=== PATIENT | male | born 1975 | race Caucasian/White ===

== ENCOUNTER 2019-04-15 17:22 | Inpatient (IN) | payer OTHER ==
[~2019-04-15] VITALS: Ht 180.3 cm; Wt 175.5 kg
[2019-04-15 17:26] VITALS: BP 173/124
[2019-04-15 18:12] LABS: ABSOLUTE NEUTROPHILS 4.9 thou/uL (1.4-8.2); BASOPHILS 0.8 % (0.0-2.0); EOSINOPHILS 3.3 % (0.0-3.0); HEMATOCRIT 42.8 % (42.0-52.0); HEMOGLOBIN 13.9 gm/dL (14.0-18.0); LYMPHOCYTES 23.3 % (24.0-44.0); MCH 30.3 pg (26.0-34.0); MCHC 32.4 g/dL (28.0-37.0); MCV 93.7 fL (80.0-100.0); MONOCYTES 8.5 % (1.0-8.0); PLATELET COUNT 169 thou/uL (150-400); POLYS 64.1 % (36.0-66.0); RBC 4.57 mil/uL (4.50-6.00); RDW 15.2 % (10.5-14.5); WBC 7.7 thou/uL (4.0-11.0)
[2019-04-15 18:21] LABS: CALCIUM 8.9 mg/dL (8.5-10.1); CREATININE 1.6 mg/dL (0.7-1.3)
[2019-04-15 18:24] LABS: INR 1.1; PROTIME 10.8 Seconds (9.3-11.4)
[2019-04-15 18:30] LABS: ALBUMIN 3.7 g/dL (3.4-5.0); TOTAL BILIRUBIN 0.4 mg/dL (<0.1-1.0); TOTAL PROTEIN 7.3 g/dL (6.4-8.2); TROPONIN-I 0.06 ng/mL (<0.06)
[2019-04-15 20:31] VITALS: BP 123/83
--- NOTE | 2019-04-15 20:32 | NUR ---
I HAND DELIVERED EKG DONE IN ER TO MARITZA HANSEN IN CCU. CARDIZEM, HEPARIN DRIP WERE INFUSING AT TIME OF TRANSFER.
[2019-04-15 21:02] VITALS: BP 140/96
[2019-04-15] MEDS ORDERED: MULTI VITAMIN1 EACH PO ×2 (23:00)
[2019-04-15] MEDS ORDERED: TYLENOL325 M1 PO ×2 (23:02)
[2019-04-15] MEDS ORDERED: TUMS200 MG PO ×2 (23:04)
[2019-04-15 23:48] VITALS: BP 146/112
--- NOTE | 2019-04-16 00:18 | NUR ---
PATIENT ARRIVED ON UNIT AT 2030 FROM ED WITH HEPARIN AND DILTAZEM RUNNING. SETTLED INTO ROOM, PLACED ON TELEMETRY. ADMITTED INTO COMPUTER SYSTEM. HOME MEDS REVIEWED. INHALER SENT TO PHARMACY TO HOLD WHILE PATIENT IS HERE. PATIENT MED BAG RECIEPT IN CHART.
[2019-04-16 01:32] LABS: CALCIUM 8.5 mg/dL (8.5-10.1); CREATININE 1.5 mg/dL (0.7-1.3); POTASSIUM 3.7 mmol/L (3.5-5.1)
[2019-04-16 01:38] LABS: CHOLESTEROL 107 mg/dL (<200); HDL CHOLESTEROL 34 mg/dL (>40); LDL CHOLESTEROL 64 mg/dL (<100); TC:HDL 3.1 Ratio (Not establshd); TRIGLYCERIDE 47 mg/dL (<150); VLDL 9 mg/dL (<40)
[2019-04-16 01:39] LABS: SERUM ASSESSMENT Clear
[2019-04-16 04:16] VITALS: BP 137/87
[2019-04-16 07:54] VITALS: BP 135/99
--- NOTE | 2019-04-16 07:57 | EKG ---
[address] [place] [address] ELECTROCARDIOGRAM REPORT Name: BINTA BINGHAM Room #: 207-P ADM IN M.R.#: [id number] Admission: 04/15/19 Attend Phys: Harrison Menon MD Discharge: Date of : 75 Report #: [id number] THIS REPORT FOR: //name// [facility] ED Test Date: 2019-04-15 Test Time: 17:34:49 Pat Name: BINTA BINGHAM Department: Room: 207 Gender: M Instructor Programmable Controllers: [place] : 1975 Requested By: Nuno Regan Order Number: [id number] MD: Dhruv Lambert Measurements Intervals Mcdaniel Rate: 127 P: RI: QRS: 50 QRSD: 91 T: 85 QT: 310 QTc: 451 Interpretive Statements Atrial fibrillation Poor R wave progression Compared to ECG 08/16/2002 07:24:53 Poor R wave progression is now present Sinus rhythm no longer present Electronically Signed On 04-16-2019 7:56:30 [employer] CLAIM EXAMINER by Dhruv Lambert [email or web address] <ELECTRONICALLY SIGNED> By: Dhruv Lambert MD, [facility] 04/16/19 0756 [id number] Dhruv Lambert MD, [facility] /EPI
[2019-04-16 12:39] VITALS: BP 139/94
--- NOTE | 2019-04-16 18:31 | NUR ---
ASSUMED CARE AT SHIFT CHANGE, ALERT AND ORIENTED X4. AFIB ON THE MONITOR, AND CARDIZEM GTT THIS AM. CARDIZEM GTT DISCONTINUED AND PO CARDIZEM GIVEN THE AM. TACHY WITH ACTIVITIES, IV LASIX GIVEN SCHEDULED AND PATIENT AND ADQUATE URINE OUTPUT. PART 1 NUCMED STRESS TEST COMPLETED, PART 2 WILL BE DONE IN THE AM. OTHER VSS AND WILL CONTINUE WITH POC.
[2019-04-16 19:46] VITALS: BP 141/99
[2019-04-17] VITALS (11 sets, daily range): BP systolic 105–133; BP diastolic 65–105
--- NOTE | 2019-04-17 04:28 | NUR ---
ASSESSMENT DOCUMENTED.PT BEEN RESTING IN NO ACUTE DISTRESS.A/OX4,VSS.ON RA W/O RESP DISTRESS.REMAINS AFIB ON MONITOR W/CONTROLLED HR BUT SOMETIMES WITH COUGHING AND ACTIVITIES HR GOES TO 120S,150S.ON HEPARIN DRIP PER CARDIAC PROTOCOL AT 10UNITS/KG/HR.URINATING PER URINAL,LARGE AMOUNT OF URINE.ON LASIX IVP.POC IS TO HAVE SECOND PART OF STRESS TEST TODAY AND MONITOR INR. WILL CONT TO MONITOR PER POC.
[2019-04-17 08:34] LABS: CALCIUM 9.2 mg/dL (8.5-10.1); CREATININE 1.5 mg/dL (0.7-1.3); POTASSIUM 3.7 mmol/L (3.5-5.1)
[2019-04-17 09:02] LABS: APTT 66.6 Seconds (24.5-32.8); INR 1.1; PROTIME 10.6 Seconds (9.3-11.4)
--- NOTE | 2019-04-17 14:00 | NUR ---
Assess due to high BMI 55.4=extreme class III obesity. Admit with SOA, CHF. Requires lasix for diuresis. Appetite adequate. See RD education note for further information. Low nutrition risk
--- NOTE | 2019-04-17 16:04 | CATHLAB ---
[facility] [address] [email or web address] [address] INVASIVE PROCEDURE REPORT Name: BINTA BINGHAM Room #: 207-P ADM IN .R.#: [id number] Admission: 04/15/19 Attend Phys: Harrison Menon MD Discharge: Date of : 75 Report #: [id number] THIS REPORT FOR: //name// APPROVED REPORT Study performed: 04/17/2019 14:22:46 Patient Details Patient Status: In-Patient Room #: The patient is a 44 year-old male Event Personnel Jayro Bazan Stunt Performer, Meka Donovan RN RN, Zoe Manuel RN RN, Kani Rutherford Sandifer, David Monitor Procedures Performed Left Heart Cath w/or w/o Coronaries [id number] [facility] Indication CHF Current Status: , Atrial fibrillation, Dyspnea, CardiomyopathyPositive stress test Risk Factors Obesity, Physical Activity, Hypertension Procedure Narrative The Right Wrist^ was infiltrated with 1% Lidocaine subcutaneous anesthesia. A TRANSRADIAL SLENDER 6F GLIDESHEATH KIT #[id number] sheath was inserted into the Right Radial Artery^. Coronary angiography was performed using coronary diagnostic catheters. The right coronary system was accessed and visualized with a 5FR JR 4 #[id number] catheter. The left coronary system was accessed and visualized with a 5FR JL 3.5 #[id number] catheter. The left ventricle was accessed and visualized with a 5FR JR 4 #[id number] catheter. Left ventricular/Aortic Valve gradient assessed via catheter pullback. Closure device was deployed with a Fr VASC BAND XL 29CM #[id number]. The patient tolerated the procedure well and there were no complications associated with the procedure. Intraoperative Conscious Sedation Sedation start time: 15.04 Case end Time: 15.33 Fentanyl 50 mcg Versed 1 mg [facility] [place] [address] INVASIVE PROCEDURE REPORT Name: BINTA BINGHAM SARINA Room #: 207-P [facility] IN ..#: [id number] Admission: 04/15/19 Attend Phys: Harrison Menon MD Discharge: Date of : 75 Report #: [id number] Fluoro Time: 3.80 minutes Dose: DAP 9271.00 cGycm2 1512 mGy Contrast Type and Amount: Visipaque 50 ml Coronary Angiography The patient's coronary anatomy is right dominant. Diagnostic Cath Left Main The left main artery is a large-caliber vessel, patent with no flow-limiting lesions. LAD The LAD is a moderate to large-caliber vessel, traversing the anterior wall and terminating at the apex. There is a mild stenosis in the proximal segment, less than 10%. Diagonal 1 This is a patent vessel, with no flow-limiting lesions. Circumflex Supplies one OM vessel. OM1 This is a patent vessel, with no flow-limiting lesions. Right Coronary This is a moderate to large caliber vessel, dominant. There is a mild stenosis in the proximal segment, less than 10%. R PDA This is a moderate size caliber vessel, patent with no flow-limiting lesions. RPLV This is a moderate size caliber vessel, patent with no flow-limiting lesions. Left Ventriculography Left Ventriculography was not performed. Ejection Fraction was 40% based off patient's Nuclear Cardiac Stress Test. An LVEDP was measured and there is no gradient across the outflow tract. Hemodynamics The aortic pressure is 115/88 mmHg with a mean of 101 mmHg. The left ventricular pressure is 119/18 mmHg with a mean of mmHg. The left ventricular end diastolic pressure is 29 mmHg. There was no gradient across the aortic valve upon pullback. Pullback from the left ventricle to the aorta revealed no gradient across the aortic valve. Conclusion 1. Nonischemic cardiomyopathy. 2. Mild, nonobstructive disease. [facility] [address] [place] [address] INVASIVE PROCEDURE REPORT Name: BINTA BINGHAM Room #: 207-P [facility] IN M.R.#: [id number] Admission: 04/15/19 Attend Phys: Harrison Menon MD Discharge: Date of : 75 Report #: [id number] 3. Recommend guideline directed medical therapy and aggressive risk factor management. <ELECTRONICALLY SIGNED> By: Jayro Bazan MD 01/1602 02 02 Jayro Bazan MD /KING
--- NOTE | 2019-04-17 17:01 | NUR ---
Met with patient he admits with chest pain. he works at [employer] and been with [employer] for 15 years. 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 He does not have a licease so walks to work or trys to catch ride. He is independent with mobility and lives alone in [facility]. He has supportive family. [employer] to see patient he may not qualify for 12 month disability. Joy application to be given to patient or mailed. Gave patient resources for safety net clinic and services. patient with no PCP. He missed window to sign up for benefits and unable to s/o for benefits until Jan 2020.
--- NOTE | 2019-04-17 17:40 | NUR ---
ASSUMED CARE AT SHIFT CHANGE, ALERT AND ORIENTED X4 VSS AND AFEBRILE. AFIB ON THE MONITOR. ASSESMENT DOCUMENTED. PATIENT CATHED TODAY, RT RADIAL ACCESSED, AND POST CARDIAC CATH ASSESSMENT DONE. DENIES ANY DISCOMFORT AND WILL CONTINUE WITH POC.
[2019-04-18 03:31] VITALS: BP 91/61
--- NOTE | 2019-04-18 05:27 | NUR ---
ASSUMED CARE OF PT AT 1900HRS. PT IS AOX4 AND UP AD KATHERIN. PT USES CALL LIGHT NEEDED. NO BLEEDING NOTED FROM CATH SITE. LASIX CONTINUED. PT IS ON AFIB RHYTHM. PT WAS NOTED TO BECOME BRADYCARDIC A FEW TIMES WHILE RESTING. HEART RATE WAS IN THE 30S FOR A FEW SECONDS AT A TIME BUT PT WAS ASYMPTOMATIC. PT WAS ABLE TO GET COMFORTABLE AND SLEEP PART OF THE SHIFT. VSS AND NO S/S OF ACUTE DISTRESS. WILL CONTINUE TO MONITOR.
[2019-04-18 05:31] LABS: HEMATOCRIT 40.9 % (42.0-52.0); MCH 29.6 pg (26.0-34.0); MCHC 31.8 g/dL (28.0-37.0); MCV 93.3 fL (80.0-100.0); RBC 4.39 mil/uL (4.50-6.00); RDW 14.9 % (10.5-14.5); WBC 6.3 thou/uL (4.0-11.0)
[2019-04-18 05:32] LABS: PROTIME 10.7 Seconds (9.3-11.4)
[2019-04-18 05:51] LABS: CALCIUM 8.7 mg/dL (8.5-10.1); CREATININE 1.5 mg/dL (0.7-1.3); POTASSIUM 3.8 mmol/L (3.5-5.1)
[2019-04-18 07:55] VITALS: BP 99/73
--- NOTE | 2019-04-18 09:44 | 2DMMODE ---
[facility] [address] [place] [address] 2 D/M-MODE ECHOCARDIOGRAM Name: BINTA BINGHAM Room #: 207-P ADM IN M.R.#: [id number] Admission: 04/15/19 Attend Phys: Harrison Menon MD Discharge: Date of : 75 Report #: [id number] THIS REPORT FOR: //name// APPROVED REPORT Study performed: 04/18/2019 08:57:57 EXAM: Comprehensive 2D, Doppler, and color-flow Echocardiogram Patient Location: Echo lab Room #: 207 Status: routine BSA: 2.83 HR: 78 bpm BP: 91/61 mmHg Rhythm: Atrial Fibrillation Other Information Study Quality: Fair Technically limited study due to super morbid obese. Indications Short of breath, Afib, edema, CHF. Status post angiogram/mild CAD no intervention. Echo Enhancing Agent Indication: Endocardial border delineation Agent(s) / Amount(s) Used: Optison 4 cc 2D Dimensions RVDd: 47.21 mm IVSd: 12.72 (7-11mm) LVOT Diam: 24.08 (18-24mm) LVDd: 60.62 mm PWd: 13.10 (7-11mm) LVDs: 41.87 (25-40mm) Aortic Root: 36.38 mm Volumes Left Atrial Volume (Systole) Single Plane 4CH: 198.62 mL Single Plane 2CH: 183.55 mL LA ESV Index: 70.00 mL/m2 Aortic Valve AoV Peak Varinder.: 1.47 m/s AO Peak Gr.: 8.63 mmHg LVOT Max P.66 mmHg [facility] [address] [place] [address] 2 D/M-MODE ECHOCARDIOGRAM Name: BINTA BINGHAM Room #: 207-P ADM IN M.R.#: [id number] Admission: 04/15/19 Attend Phys: Harrison Menon MD Discharge: Date of : 75 Report #: [id number] LVOT Max V: 0.96 m/s STELLA Vmax: 2.96 cm2 Mitral Valve MV Decel. Time: 156.54 ms MV E Max Varinder.: 1.42 m/s Tricuspid Valve TR Peak Varinder.: 2.63 m/s RAP Estimate: 15.00 mmHg TR Peak Gr.: 28.00 mmHg PA Pressure: 43.00 mmHg Left Ventricle Left ventricle is dilated. Mild concentric left ventricular hypertrophy. Left ventricular systolic function is moderately decreased. LVEF is 40%. This study is not technically sufficient to allow evaluation of the LV diastolic function due to atrial fibrillation. Right Ventricle Right ventricle is mildly dilated. Difficult to assess function. Atria Left atrium is severely dilated. Right atrium is mildly dilated. Aortic Valve The aortic valve is normal in structure. Trace aortic regurgitation. There is no aortic valvular stenosis. Mitral Valve The mitral valve is normal in structure. Mild to moderate mitral regurgitation. Tricuspid Valve The tricuspid valve is normal in structure. Moderate tricuspid regurgitation. Estimated PAP is 40mmHg. Pulmonic Valve Pulmonic valve is not well visualized. Great Vessels The aortic root is normal in size. Ascending aorta is not well visualized. IVC is dilated and collapses <50% with inspiration. [facility] [address] [place] [address] 2 D/M-MODE ECHOCARDIOGRAM Name: BINTA BINGHAM Room #: 207-P [facility] IN ..#: [id number] Admission: 04/15/19 Attend Phys: Harrison Menon MD Discharge: Date of : 75 Report #: [id number] Pericardium There is no pericardial effusion. <Conclusion> Left ventricle is dilated. Mild concentric left ventricular hypertrophy. Left ventricular systolic function is moderately decreased. LVEF is 40%. Right ventricle is mildly dilated. Difficult to assess function. Left atrium is severely dilated. The aortic valve is normal in structure. Mild to moderate mitral regurgitation. Moderate tricuspid regurgitation. Estimated PAP is 40mmHg. <ELECTRONICALLY SIGNED> By: Jayro Bazan MD 04/18/19 0943 Jayro Bazan MD /INF
[2019-04-18 11:49] VITALS: BP 116/94
[2019-04-18 16:33] VITALS: BP 104/81
--- NOTE | 2019-04-18 17:03 | NUR ---
inquired into pricing for lovenox on outpatient basis. For approx 28 syringes approx 7 day supply $575.84 patient needing 4 100mg syringes for daily use of 180mg BID. Patient with no health insurance, no PCP and need for lab draws and medical management on outpatient basis of INR. Plan to keep patient until [facility]putic [facility]
[2019-04-18 18:02] LABS: HEMATOCRIT 41.3 % (42.0-52.0); HEMOGLOBIN 13.2 gm/dL (14.0-18.0); MCH 29.5 pg (26.0-34.0); MCHC 31.9 g/dL (28.0-37.0); MCV 92.4 fL (80.0-100.0); RBC 4.47 mil/uL (4.50-6.00); RDW 14.5 % (10.5-14.5); WBC 6.7 thou/uL (4.0-11.0)
--- NOTE | 2019-04-18 18:04 | NUR ---
PT HAS REMAINED CONTROLLED AFIB ENTIRE SHIFT. PT HAD ONE EPISODE AT 0707 WHERE HR DROPPED TO 33. PT ASYMPTOMMATIC. COBBLER MCKAY FROM CARDIOLOGY WAS ON UNIT AND STRIP WAS PRINTED AND GIVEN TO HER. WHEN PT'S HR DROPPED HE IMMEDIATELY RECOVERED HR TO WNL. PT WALKED HALLWAY X2 LABS TODAY WITH STANDBY. PT STEADY ON FEET. PT ATE 100% OF MEALS TODAY. NO C/O PAIN. NO SOA.
[2019-04-18 19:43] VITALS: BP 106/79
[2019-04-19 04:45] VITALS: BP 132/81
--- NOTE | 2019-04-19 05:01 | NUR ---
ASSUMED PT CARE AT 1900. PT IS ALERT AND ORIENTED WITH NO SIGN OF DISTRESS. ASSESSMENT DOCUMENTED AND CHARTED. PT IS STABLE. DENIES ANY PAIN. SCHEDULED MEDS ADMINISTERED. HEART RATE STABLE AND CONTROLLED. NO FURTHER NEEDS AT THIS TIME.
[2019-04-19 05:23] LABS: INR 1.2; PROTIME 12.2 Seconds (9.3-11.4)
[2019-04-19 08:00] VITALS: BP 107/86
[2019-04-19 11:55] VITALS: BP 125/80
[2019-04-19 15:55] VITALS: BP 119/71
--- NOTE | 2019-04-19 17:57 | NUR ---
RECEIVED PT'S CARE AROUND 0710; PT. ON BED; AOX4; DURING AM ASSESSMENT NO C/O PAIN; AM MEDICATION GIVEN; EDUCATED ABOUT MEDICATION & TREATMENT; ST. UNDERSTANDING; EDUCATED ABOUT PRIVATE NUMBER WHEN RELATIVES CALL IN REGARD OF PT'S HEALTH INFORMATION; ST. UNDERSTANDING; AFIB ON THE HEART MONITOR; REQUESTED TO TAKE SHOWER; OK TO TAKE A SHOWER WITH CARDIOLOGY; ASSESSMENT CHARGED; FOLLOWING POC; WILL PASS ON REPORT;
[2019-04-19 20:08] VITALS: BP 128/80
[2019-04-20] VITALS (8 sets, daily range): BP systolic 116–139; BP diastolic 72–104
--- NOTE | 2019-04-20 05:21 | NUR ---
ASSUMED PT CARE AROUND 1900. A&OX4. DENIES ANY PAIN OR SOA. PT SLEPT MOST OF THE NIGHT. RESP EVEN AND UNLABORED. VOIDS PER URINAL. GOOD URINE OUTPUT. UP AD KATHERIN AROUND THE ROOM. NO MAJOR COMPLAINTS THIS SHIFT. AFIB ON TELE, RATE CONTROLLED. PROGRESSING TOWARD POC GOALS. WILL CONTINUE TO MONITOR FURTHER.
[2019-04-20 05:51] LABS: INR 1.3; PROTIME 13.4 Seconds (9.3-11.4)
[2019-04-20 05:56] LABS: CREATININE 1.3 mg/dL (0.7-1.3); POTASSIUM 4.4 mmol/L (3.5-5.1)
[2019-04-20] MEDS ORDERED: COUMADIN 5 MG TA5 M1 PO ×2 (11:57)
[2019-04-20] MEDS ORDERED: METOPROLOL SUCC50 MG PO ×2 (11:57)
[2019-04-20] MEDS ORDERED: COZAAR 25 MG TA25 M2 PO ×2 (11:57)
--- NOTE | 2019-04-20 14:02 | NUR ---
Cnc Milling Machine Operator visited with the pt at bedside to review his f/u plan to access healthcare. I have made him a new pt appt at the [facility] in [place] for 05/04/2019 at 1:20pm. He is to go there next week for a PT/INR lab draw and cardiology is faxing them the order at [phone]. The pt was also given the number to [facility] financial services office so he can get approved for services there and schedule a cardiology appt. Pt provided with coupon/discount script cards. A 30 day supply of losartan, coumadin(20 days),metoprolol vouchered by nica was filled by the [facility] outpt pharmacy and locked in the med room on 2N to be given to the pt at dc (by his RN). Pt is anticipating dc to home tomorrow. He is agreeable to the outpt plan and feels he can f/u.
--- NOTE | 2019-04-20 15:51 | NUR ---
FAXED PT'S H/P, AND TODAY'S PROG. NOTES, LAB, MED LIST TO [facility] RECEIVED CONFIRMATION PT TO HAVE LAB DRAWN NEXT WEEK AND HAS A APPT SCHEDULED FOR Apr. PT DISCHARGING TODAY TO HOME.
--- NOTE | 2019-04-20 17:45 | NUR ---
RECEIVED PT'S CARE AROUND 0730; PT. ON BED; AOX4; DURING ASSESSMENT NO C/O PAIN; AM MEDICATIONS GIVEN; EDUCATED ABOUT POC; GOALS THROUGH THE DAY; UNDERSTANDING; WHILE GIVEN AM MEDICATIONS DR. HASSAN AT THE BED SIDE; REQUESTED TO CHANGE METOPROLOL 100 MG DAILY; CHANGED IT; THROUGH THE AFTERNOON PT'S HR ELEVATED ON THE 150s-160s WITH EXERTION; WARE CARRIER NOTIFIED; VALERIA LEAL; ORDERS RECEIVED; MONITORING; PER HOSPITALIST PT. MIGHT BE D/C ON 04/21/2019; BINGO MANAGER NOTIFIED; WARE CARRIER NOTIFIED; PT. NEEDS TO FOLLOW UP WITH LAB DUE TO COUMADIN RX; PER BINGO MANAGER RX NEEDED TODAY 04/20/2019; RX GIVEN; BINGO MANAGER'S NUMBER GIVEN TO CARDIOLOGY; PER BINGO MANAGER REPORT ARREGEMENTS FOR PT. TO HAVE LABS PERFORM AFTER A WEEK OF D/C HAVE BEING ARRANGED; PT'S RX SENT TO IN PATIENT PHARMACY; PT. REQUESTED WORK EXCUSE BEFORE BEING D/C; WILL PASS ON REPORT; PT. NOTIFIED; ASSESSMENT CHARGED; FOLLOWING POC; WILL PASS ON REPORT;
[2019-04-21 04:11] VITALS: BP 115/87
--- NOTE | 2019-04-21 05:17 | NUR ---
ASSUMED PT CARE AT 1900. PT IS ALERT AND ORIENTED WITH NO SIGN OF DISTRESS NOTED IN PT. DENIES ANY PAIN. MONITOR HEART RATE. ASSESSMENT COMPLETED AND DOCUMENTED. SCHEDULED MEDS ADMINISTERED TO PT. PT DENIES ANY PAIN. PT STATES HE IS READY TO BE DISCHARGED. DENIES ANY FURTHER NEED AT THIS TIME.
[2019-04-21 06:30] LABS: INR 1.9; PROTIME 19.2 Seconds (9.3-11.4)
[2019-04-21 07:55] VITALS: BP 147/67
[2019-04-21 08:00] VITALS: BP 118/71
[2019-04-21] MEDS ORDERED: CARDIZEM CD 18180 M3 PO ×2 (08:21)
[2019-04-21] MEDS ORDERED: COUMADIN 5 MG TA5 M1 PO ×4 (08:37→12:15)
[2019-04-21 12:00] VITALS: BP 115/73
[2019-04-21 12:30] VITALS: BP 115/73; BP 138/84
--- NOTE | 2019-04-21 13:43 | NUR ---
PT SPOKE WITH DR FRAZIER ABOUT DISCHARGE, PT VERBALIZED UNDERSTANDING OF INSTRUCTIONS AND WHICH CLINICS TO VISIT. PT HAS MEDICATIONS FROM PHARMACY. TELE AND IV DISCONTINUED, PT LEFT WITH FRIEND AND TOOK ALL BELONGINGS.
== END 2019-04-21 13:45 | disposition home or self-care (01) | DRG 280 ==
LOC: ER 17:22 → EROBS 19:12 → 2N 19:12
PROVIDERS: Emergency Medicine; Internal Medicine Cardiovascular Disease; Nurse Practitioner Acute Care; ADMIT Hospitalist
PROC: 4A023N7 Measurement of Cardiac Sampling and Pressure, Left Heart, Percutaneous Approach (ICD-10-PCS; principal; 2019-04-17)
PROC: B211YZZ Fluoroscopy of Multiple Coronary Arteries using Other Contrast (ICD-10-PCS; principal; 2019-04-17)
DX: I21.4 Non-ST elevation (NSTEMI) myocardial infarction (principal); I50.23 Acute on chronic systolic (congestive) heart failure; I48.20 Chronic atrial fibrillation, unspecified; N17.9 Acute kidney failure, unspecified; I42.8 Other cardiomyopathies; Z68.43 Body mass index [BMI] 50.0-59.9, adult; I25.10 Atherosclerotic heart disease of native coronary artery without angina pectoris; F41.0 Panic disorder [episodic paroxysmal anxiety]; K21.9 Gastro-esophageal reflux disease without esophagitis; E66.9 Obesity, unspecified; F41.9 Anxiety disorder, unspecified; E66.01 Morbid (severe) obesity due to excess calories; I11.0 Hypertensive heart disease with heart failure; F17.210 Nicotine dependence, cigarettes, uncomplicated; Z88.0 Allergy status to penicillin; Z82.49 Family history of ischemic heart disease and other diseases of the circulatory system; Z71.6 Tobacco abuse counseling; Z79.01 Long term (current) use of anticoagulants
CPT/HCPCS: 10081

== ENCOUNTER 2019-04-23 00:14 | Emergency (ER) | payer OTHER ==
[~2019-04-23] VITALS: Ht 180.3 cm; Wt 181.0 kg
[~2019-04-23 00:14] MED LIST: CARDIZEM CD 18180 M3 PO; COUMADIN 5 MG TA5 M1 PO; COZAAR 25 MG TA25 M2 PO; METOPROLOL SUCC50 MG PO; MULTI VITAMIN1 EACH PO; TUMS200 MG PO; TYLENOL325 M1 PO
[2019-04-23 01:32] LABS: ABSOLUTE NEUTROPHILS 4.3 thou/uL (1.4-8.2); BASOPHILS 0.7 % (0.0-2.0); EOSINOPHILS 2.6 % (0.0-3.0); HEMATOCRIT 39.3 % (42.0-52.0); HEMOGLOBIN 12.6 gm/dL (14.0-18.0); LYMPHOCYTES 22.6 % (24.0-44.0); MCH 29.7 pg (26.0-34.0); MCV 92.5 fL (80.0-100.0); MONOCYTES 10.7 % (1.0-8.0); PLATELET COUNT 146 thou/uL (150-400); POLYS 63.4 % (36.0-66.0); RBC 4.25 mil/uL (4.50-6.00); RDW 14.3 % (10.5-14.5); WBC 6.8 thou/uL (4.0-11.0)
[2019-04-23 01:34] LABS: CALCIUM 8.9 mg/dL (8.5-10.1); CREATININE 1.5 mg/dL (0.7-1.3); POTASSIUM 4.8 mmol/L (3.5-5.1)
[2019-04-23 01:40] LABS: ALBUMIN 3.5 g/dL (3.4-5.0); TOTAL BILIRUBIN 0.4 mg/dL (<0.1-1.0); TOTAL PROTEIN 6.7 g/dL (6.4-8.2)
[2019-04-23 01:43] LABS: APTT 35.8 Seconds (24.5-32.8); INR 1.9; PROTIME 19.2 Seconds (9.3-11.4)
[2019-04-23 01:44] LABS: URINE BILIRUBIN NEGATIVE (Negative); URINE BLOOD 3+ (Negative); URINE GLUCOSE-RANDOM* NEGATIVE (Negative); URINE KETONES NEGATIVE (Negative); URINE LEUKOCYTES-REFLEX NEGATIVE (Negative); URINE NITRITE-REFLEX NEGATIVE (Negative); URINE PROTEIN (DIPSTICK) 3+ (Negative)
[2019-04-23 01:47] LABS: URINE CLARITY CLOUDY; URINE COLOR RED
[2019-04-23 02:07] LABS: CASTS None Seen /LPF (None Seen); MUCUS 0-3 Light strn/LPF (None Seen); SQUAMOUS None Seen /LPF (0-3)
[2019-04-23 02:08] LABS: BACTERIA-REFLEX None Seen /HPF (None Seen); CRYSTALS None Seen /LPF (None Seen); URINE RBC >20 Many /HPF (0-2); URINE WBC-REFLEX 6-15 Few /HPF (0-5)
[2019-04-23] MEDS ORDERED: KEFLEX500 M1 PO (03:06)
[2019-04-23 03:25] VITALS: BP 150/108
== END 2019-04-23 03:28 | disposition home or self-care (01) ==
LOC: ER 00:14
PROVIDERS: Emergency Medicine
DX: R31.0 Gross hematuria (principal); K21.9 Gastro-esophageal reflux disease without esophagitis; E66.9 Obesity, unspecified; I48.91 Unspecified atrial fibrillation; F41.9 Anxiety disorder, unspecified; Z79.01 Long term (current) use of anticoagulants; Z87.891 Personal history of nicotine dependence